=== PATIENT | male | born 1945 | race Caucasian/White ===

== ENCOUNTER 2017-09-15 18:11 | Observation (INO) | payer OTHER ==
[~2017-09-15] VITALS: Ht 175.3 cm; Wt 86.0 kg
[~2017-09-15 18:11] MED LIST: ASPI81TA82 PO; HYDR50TA5 PO; LOVA20TA; SYMB80AE INH; VITA-13 PO; VITA250L PO
[2017-09-15 18:15] VITALS: BP 172/75; PULSE 91; RESP 16; TEMP 97.3; O2SAT 95
[2017-09-15 18:23] VITALS: BP 157/72; PULSE 56; RESP 17; O2SAT 96
[2017-09-15] MEDS ORDERED: SODIUM CHLORIDE 0.9% FLUSH 10 ML FLUSH IVF PRN (19:00)
[2017-09-15] MEDS ORDERED: VITA10002 PO (19:05)
[2017-09-15] MEDS ORDERED: VENTAER INH (19:05)
[2017-09-15] MEDS ORDERED: ASPI81TA16 PO (19:05)
[2017-09-15] MEDS ORDERED: HYDR50TA3 PO (19:05)
[2017-09-15] MEDS ORDERED: SYMB160A INH (19:05)
[2017-09-15] MEDS ORDERED: LOVA20TA PO (19:05)
[2017-09-15] MEDS ORDERED: VITA100018 PO (19:05)
--- NOTE | 2017-09-15 19:08 | PD ---
HPI . Left eye pain Chief Complaint: Eye Problems/Injury Time Seen by Provider: 18:21 Travel History International Travel<30 days: No Contact w/Intl Traveler<30days: No Traveled to known affect area: No History of Present Illness HPI This patient presents with chief complaint of left eye pain. Acute onset was at 2:30 PM. He states that the pain came on very suddenly. It was associated with some hazy visual changes. No diplopia. No nausea or vomiting. He states that he took ibuprofen for it at the onset. His pain continued. He finally decided to come to the hospital a few hours later for evaluation. He states that the instant that he walked into the hospital his pain and visual haziness resolved. He reports no complaints at all right now. He denies any foreign body sensation. There has been no injury to the eye. He has no peripheral neurological complaints. PFSH Past Medical History Heart Rhythm Problems: No Cancer: Yes (lung) Cardiac Catheterization: No Cardiovascular Problems: No High Cholesterol: Yes Congestive Heart Failure: No COPD: Yes Diabetes: No Diminished Hearing: No Endocrine: No Genitourinary: No Hepatitis: No Hiatal Hernia: No Hypertension: Yes Immune Disorder: No Musculoskeletal: No Neurologic: No Psychiatric: No Reproductive: No Respiratory: Yes (copd) Immunizations Current: Yes Radiation Therapy: Yes Thyroid Disease: No Tetanus Vaccination: < 5 Years Past Surgical History Abdominal Surgery: No AICD: No Cardiac Surgery: No Coronary Artery Bypass Graft: No Ear Surgery: No Endocrine Surgery: No Eye Surgery: No Genitourinary Surgery: No Gynecologic Surgery: No Joint Replacement: No Oral Surgery: No Pacemaker: No Thoracic Surgery: No Tonsillectomy: Yes Social History Alcohol Use: Yes (few beers daily ) Tobacco Use: Yes (1ppd) Substance Use: No Allergies-Medications (Allergen,Severity, Reaction): Coded Allergies: No Known Allergies (Unverified Adverse Reaction, Unknown, 09/15/17) Reported Meds & Prescriptions Reported Meds & Active Scripts Active Review of Systems Except as stated in HPI: all other systems reviewed are Neg Eyes: Positive: Blurred Vision, Photophobia, Pain, No: Diploplia, Drainage, Redness, Foreign Body Sensation, Tearing Gastrointestinal: No: Nausea, Vomiting Neurologic: No: Weakness, Focal Abnormalities Physical Exam Narrative GENERAL: Awake and alert and in no acute distress. SKIN: Warm and dry. HEAD: Normocephalic/atraumatic. EYES: There is no conjunctival injection. The cornea are deep and clear. Pupils are equal. Extraocular movements are intact. NECK: Normal range of motion. CARDIOVASCULAR: Regular rate and rhythm. RESPIRATORY: Nonlabored respirations. MUSCULOSKELETAL: Atraumatic. NEUROLOGICAL: A and O 3. Cranial nerves II through XII grossly intact. He has a normal gait. PSYCHIATRIC: Appropriate mood and affect. Data Data Last Documented VS Vital Signs Date Time Temp Pulse Resp B/P (MAP) Pulse Ox O2 Delivery O2 Flow Rate FiO2 09/15/17 18:23 56 17 157/72 (100) 96 09/15/17 18:15 97.3 Orders Orders Electrocardiogram (09/15/17 18:57) Prothrombin Time / Inr (Pt) (09/15/17 18:57) Act Partial Throm Time (Ptt) (09/15/17 18:57) Complete Blood Count With Diff (09/15/17 18:57) Comprehensive Metabolic Panel (09/15/17 18:57) Troponin I (09/15/17 18:57) Ct Brain W/O Iv Contrast(Rout) (09/15/17 18:57) Ecg Monitoring (09/15/17 18:57) Iv Access Insert/Monitor (09/15/17 18:57) Oximetry (09/15/17 18:57) Sodium Chloride 0.9% Flush (Ns Flush) (09/15/17 19:00) MDM Medical Decision Making Medical Screen Exam Complete: Yes Emergency Medical Condition: Yes Differential Diagnosis Differential diagnosis of eye pain includes but is not limited to conjunctivitis , chemical irritation, corneal abrasion, acute angle-closure glaucoma. Narrative Course This patient presents with acute left eye pain. His pain has completely resolved. A TIA workup has been initiated. His care is being turned over to Dr. Ahuja at shift change. Diagnosis Primary Impression: Left eye pain Condition: Stable Lory Granger MD Sep 15, 2017 19:08
--- NOTE | 2017-09-15 19:16 | PD ---
Physical Exam Narrative General: The patient is a well-developed well-nourished male in no acute distress. Head and Neck exam: Head is normocephalic atraumatic. Eyes: EOMI, pupils are equal round and reactive to light. No fogging of the cornea. The patient had anesthetic eyedrops applied to bilateral eyes and the patient had his eye pressure evaluated. The patient has an eye pressure on the right that is 15, left eye pressure is 24. Nose: Midline septum with pink mucous membranes Mouth: Dentition unremarkable. Moist mucus membranes. Posterior oropharynx is not erythematous. No tonsillar hypertrophy. Uvula midline. Airway patent. Neck: No palpable lymphadenopathy. No nuchal rigidity. No thyromegaly. Cardiovascular: Regular rate and rhythm without murmurs, gallops, or rubs. Lungs: Soft expiratory wheezes audible throughout bilateral lung butler. No rhonchi, no crackles. No accessory muscle use noted. No paroxysmal abdominal breathing. No tripoding. Abdomen: Soft, without tenderness to palpation in all 4 quadrants of the abdomen. No guarding, rebound, or rigidity. Normal bowel sounds are audible. No tenderness on palpation of McBurney's point. Negative Vang sign. Extremities: No clubbing, cyanosis, or edema. 2+ pulses in all 4 extremities. No calf tenderness on palpation. Back: No spinous process tenderness to palpation. No costovertebral angle tenderness to palpation. Neurologic Exam: Cranial nerves 2-12 were intact on exam. Strength is 5/5 in all 4 extremities. No sensory deficits noted. Skin Exam: No rash noted. Intact skin that is warm and dry. Data Data Last Documented VS Vital Signs Date Time Temp Pulse Resp B/P (MAP) Pulse Ox O2 Delivery O2 Flow Rate FiO2 09/15/17 19:48 57 18 169/79 (109) 96 Room Air 09/15/17 18:15 97.3 Orders Orders Electrocardiogram (09/15/17 18:57) Prothrombin Time / Inr (Pt) (09/15/17 18:57) Act Partial Throm Time (Ptt) (09/15/17 18:57) Complete Blood Count With Diff (09/15/17 18:57) Comprehensive Metabolic Panel (09/15/17 18:57) Troponin I (09/15/17 18:57) Ct Brain W/O Iv Contrast(Rout) (09/15/17 18:57) Ecg Monitoring (09/15/17 18:57) Iv Access Insert/Monitor (09/15/17 18:57) Oximetry (09/15/17 18:57) Sodium Chloride 0.9% Flush (Ns Flush) (09/15/17 19:00) Sodium Chlor 0.9% 1000 Ml Inj (Ns 1000 M (09/15/17 19:30) Proparacaine 0.5% Opth Soln (Alcaine 0.5 (09/15/17 19:45) Potassium Chloride (Kcl) (09/15/17 20:45) Aspirin (Aspirin) (09/15/17 20:45) Admit Order (Ed Use Only) (09/15/17 21:02) Labs Laboratory Tests Test 09/15/17 19:45 White Blood Count 5.7 TH/MM3 Red Blood Count 4.86 MIL/MM3 Hemoglobin 15.8 GM/DL Hematocrit 45.2 % Mean Corpuscular Volume 93.1 FL Mean Corpuscular Hemoglobin 32.5 PG Mean Corpuscular Hemoglobin Concent 34.9 % Red Cell Distribution Width 13.7 % Platelet Count 233 TH/MM3 Mean Platelet Volume 7.9 FL Neutrophils (%) (Auto) 58.6 % Lymphocytes (%) (Auto) 28.8 % Monocytes (%) (Auto) 7.5 % Eosinophils (%) (Auto) 4.1 % Basophils (%) (Auto) 1.0 % Neutrophils # (Auto) 3.3 TH/MM3 Lymphocytes # (Auto) 1.6 TH/MM3 Monocytes # (Auto) 0.4 TH/MM3 Eosinophils # (Auto) 0.2 TH/MM3 Basophils # (Auto) 0.1 TH/MM3 CBC Comment DIFF FINAL Differential Comment Prothrombin Time 10.2 SEC Prothromb Time International Ratio 1.0 RATIO Activated Partial Thromboplast Time 25.2 SEC Blood Urea Nitrogen 15 MG/DL Creatinine 0.94 MG/DL Random Glucose 122 MG/DL Total Protein 6.9 GM/DL Albumin 3.7 GM/DL Calcium Level 8.8 MG/DL Alkaline Phosphatase 60 U/L Aspartate Amino Transf (AST/SGOT) 21 U/L Alanine Aminotransferase (ALT/SGPT) 22 U/L Total Bilirubin 0.3 MG/DL Sodium Level 140 MEQ/L Potassium Level 3.3 MEQ/L Chloride Level 104 MEQ/L Carbon Dioxide Level 28.9 MEQ/L Anion Gap 7 MEQ/L Estimat Glomerular Filtration Rate 79 ML/MIN Troponin I LESS THAN 0.02 NG/ML [facility] Medical Record Reviewed: Yes Supervised Visit with BILL: No Interpretation(s) Last Impressions Head CT 09/15/17 [id number] Signed Impressions: Service Date/Time: Friday, September 15, 2017 19:27 - CONCLUSION: No acute disease. Rajiv Gaitan MD Narrative Course During the course of the patient's emergency department visit, the patient's history, examination, and differential diagnosis were reviewed with the patient. The patient was placed on a quality assurance monitor chassis with oximetry and frequent blood pressure monitoring. The patient had IV access obtained and blood work sent for analysis. The patient's case was checked out to me by Dr. Granger. Please see her complete history and physical. The patient's case was checked out to me at the conclusion of her shift. The patient had an EKG done that reveals a sinus bradycardia heart rate of 55, QRS duration 108 ms, QTC [address] segment elevation. The patient was initially provided normal saline at 70 mL/h. The patient's laboratory studies were reviewed and remarkable for white count of 5.7, hemoglobin 15.8, platelets 233 with 4.1 eosinophils, CMP is remarkable for a potassium of 3.3 which will be supplemented orally, glucose 122, troponin less than 0.02, PT 10.2, PTT 25.2 Radiology studies were reviewed and remarkable for a CT scan of the brain that shows no acute abnormality. Given the patient's risk factors for TIA including hyperlipidemia, smoking, hypertension, the patient will be admitted to the hospital for observation and evaluation for possible TIA. The patient's results were discussed with the patient, including the plan of care. I explained that further testing and/ or monitoring is indicated based on the patient's history, examination, and/ or laboratory findings. Therefore, I recommended admission for additional evaluation. The patient expressed understanding and was agreeable with this plan. The patient was admitted to the hospital in stable condition and [facility] Physician Communication Physician Communication The patient's case including history, pertinent physical examination findings, and laboratory studies were discussed with Dr. Copeland. It was [facility] Diagnosis Primary Impression: Left eye pain Additional Impressions: Head ache Qualified Codes: R51 - Headache Visual blurriness Admitting Information Admitting Physician Requests: Observation Condition: Stable Shereen Ahuja MD Sep 15, 2017 19:16
[2017-09-15] MEDS ORDERED: PROPARACAINE HCL 0.5% OPHT SOLN 15 ML BTL EACH EYE ONE (19:45)
--- NOTE | 2017-09-15 19:45 | RADRPT ---
EXAM DATE/TIME: 09/15/2017 19:27 [facility] COMPARISON: No previous studies available for comparison. INDICATIONS : Episode of cephalgia today. RADIATION DOSE: 56.35 CTDIvol (mGy) MEDICAL HISTORY : Hypertension. Chronic obstructive pulmonary disease. Carcinoma, lung. SURGICAL HISTORY : Tonsillectomy. ENCOUNTER: Initial ACUITY: 1 day PAIN SCALE: 0/10 LOCATION: Bilateral head TECHNIQUE: Multiple contiguous axial images were obtained of the head. Using automated exposure control and adj ustment of the mA and/or kV according to patient size, radiation dose was kept as low as reasonably a chievable to obtain optimal diagnostic quality images. DICOM format image data is available electro nically for review and comparison. FINDINGS: No signs of acute infarct, hemorrhage, or mass. Scattered foci of low attenuation within the bilatera l subcortical white matter and centrum semiovale having the appearance of remote lacunar infarcts. No fractures. CONCLUSION: No acute disease. Rajiv Gaitan MD on September 15, 2017 at 19:43 Board Certified Radiologist. This report was verified electronically.
[2017-09-15] MEDS: SODIUM CHLOR 0.9% 1000 ML INJ 1,000 ML IV SCH (19:46)
[2017-09-15 19:47] VITALS: RESP 20
[2017-09-15 19:48] VITALS: BP 169/79; PULSE 57; RESP 18; O2SAT 96
[2017-09-15 20:02] LABS: AUTOMATED NEUTROPHIL # 3.3 TH/MM3 (1.8-7.7); BASOPHIL # 0.1 TH/MM3 (0-0.2); EOSINOPHIL # 0.2 TH/MM3 (0-0.4); EOSINOPHIL % 4.1 % (0.0-4.0); HEMATOCRIT 45.2 % (39.0-51.0); HEMOGLOBIN 15.8 GM/DL (13.0-17.0); LYMPH % 28.8 % (9.0-44.0); LYMPHOCYTE # 1.6 TH/MM3 (1.0-4.8); MEAN CELL VOLUME 93.1 FL (80.0-100.0); MEAN CORPUSCULAR HEMOGLOBIN 32.5 PG (27.0-34.0); MEAN CORPUSCULAR HGB CONC 34.9 % (32.0-36.0); MEAN PLATELET VOLUME 7.9 FL (7.0-11.0); MONO % 7.5 % (0.0-8.0); MONOCYTE # 0.4 TH/MM3 (0-0.9); NEUT % 58.6 % (16.0-70.0); PLATELET COUNT 233 TH/MM3 (150-450); RED BLOOD COUNT 4.86 MIL/MM3 (4.50-5.90); RED CELL DISTRIBUTION WIDTH 13.7 % (11.6-17.2); WHITE BLOOD COUNT 5.7 TH/MM3 (4.0-11.0)
[2017-09-15 20:09] LABS: PROTHROMBIN TIME - PATIENT 10.2 SEC (9.8-11.6)
[2017-09-15 20:18] LABS: ALBUMIN 3.7 GM/DL (3.4-5.0); AST (GOT) 21 U/L (15-37); BICARBONATE 28.9 MEQ/L (21.0-32.0); BLOOD UREA NITROGEN 15 MG/DL (7-18); CALCIUM 8.8 MG/DL (8.5-10.1); CHLORIDE 104 MEQ/L (98-107); CREATININE 0.94 MG/DL (0.60-1.30); GLOMERULAR FILTRATION RATE 79 ML/MIN (>89); GLUCOSE,RANDOM 122 MG/DL (74-106); SODIUM (NA) 140 MEQ/L (136-145)
[2017-09-15 20:19] LABS: ALT (GPT) 22 U/L (12-78)
[2017-09-15 20:23] LABS: ALKALINE PHOSPHATASE 60 U/L (45-117); TOTAL BILIRUBIN ADULT 0.3 MG/DL (0.2-1.0); TOTAL PROTEIN 6.9 GM/DL (6.4-8.2); TROPONIN I LESS THAN 0.02 NG/ML (0.02-0.05)
[2017-09-15] MEDS ORDERED: ASPIRIN 325 MG TAB PO ONE (20:45)
[2017-09-15] MEDS ORDERED: POTASSIUM CHLORIDE 10 MEQ CAP PO ONE (20:45)
--- NOTE | 2017-09-15 21:08 | HHI.HP ---
[facility] Erick Baxter MD Admission Diagnosis Headache with vision changes r/o TIA Diagnoses: (1) Transient visual loss of left eye Diagnosis: Principal (2) Headache Diagnosis: Principal (3) Tobacco abuse Diagnosis: Principal Travel History International Travel<30 Days: No Contact w/Intl Traveler <30 Da: No Traveled to Known Affected Are: No History of Present Illness This is a 72-year-old male with a PMH of HTN, Hyperlipidemia, COPD and Tobacco Abuse who presented to the ER w/ complaints of severe left eye pain, transient vision loss and headache. States he noted frontal headache and pain around his eye earlier this afternoon, followed by blurry vision in left eye. States he took 2 Ibuprofen with some relief, however pain persistent. Upon arrival to ER states symptoms completely resolved. No further vision loss or pain. Denies h/ o Glaucoma, but does follow w/ Outboard Motor Mechanic, cannot recall name. On exam in ER, IOP 24 in left eye. BP 172/75, HR 91, O2 sat 95% on RA, Afebrile. CBC unremarkable. Chemistry essentially unremarkable except for K+ 3.3, GFR 79. Troponin negative INR 1.0. CT Head with no acute findings. Review of Systems Except as stated in HPI: all other systems reviewed are Neg ROS: 14 point review of systems otherwise negative. Past Family Social History Past Medical History PMH: HTN, Hyperlipidemia, COPD and Tobacco Abuse Past Surgical History PAST SURGICAL HISTORY: Tonsillectomy Allergies: Coded Allergies: No Known Allergies (Unverified Allergy, Unknown, 09/15/17) Family History PAST FAMILY HISTORY: Reviewed. No h/o DM or CAD Social History PAST SOCIAL HISTORY: Few beers daily. Smokes 1ppd. Negative for drugs. Physical Exam Vital Signs Vital Signs Date Time Temp Pulse Resp B/P (MAP) Pulse Ox O2 Delivery O2 Flow Rate FiO2 09/15/17 19:48 57 18 169/79 (109) 96 Room Air 09/15/17 19:47 20 09/15/17 18:23 56 17 157/72 (100) 96 3/31/18 18:15 97.3 91 16 172/75 (060) 77 Physical Exam PE: GENERAL: Middle-aged white male in no acute distress. HEENT: PERRLA, EOMI. No scleral icterus or conjunctival pallor. No lid lag or facial droop. CARDIOVASCULAR: Regular rate and rhythm. No obvious murmurs to auscultation. No chest tenderness to palpation. RESPIRATORY: No obvious rhonchi or wheezing. Clear to auscultation. Breath sounds equal bilaterally. GASTROINTESTINAL: Abdomen soft, non-tender, nondistended. BS normal. MUSCULOSKELETAL: Extremities without clubbing, cyanosis, or edema. No obvious deformities. RUE amputation. NEUROLOGICAL: Awake, alert and oriented x4. No focal neurologic deficits. Moving both upper and lower extremities spontaneously. Laboratory Laboratory Tests Test 09/15/17 19:45 White Blood Count 5.7 Red Blood Count 4.86 Hemoglobin 15.8 Hematocrit 45.2 Mean Corpuscular Volume 93.1 Mean Corpuscular Hemoglobin 32.5 Mean Corpuscular Hemoglobin Concent 34.9 Red Cell Distribution Width 13.7 Platelet Count 233 Mean Platelet Volume 7.9 Neutrophils (%) (Auto) 58.6 Lymphocytes (%) (Auto) 28.8 Monocytes (%) (Auto) 7.5 Eosinophils (%) (Auto) 4.1 Basophils (%) (Auto) 1.0 Neutrophils # (Auto) 3.3 Lymphocytes # (Auto) 1.6 Monocytes # (Auto) 0.4 Eosinophils # (Auto) 0.2 Basophils # (Auto) 0.1 CBC Comment DIFF FINAL Differential Comment Prothrombin Time 10.2 Prothromb Time International Ratio 1.0 Activated Partial Thromboplast Time 25.2 Blood Urea Nitrogen 15 Creatinine 0.94 Random Glucose 122 Total Protein 6.9 Albumin 3.7 Calcium Level 8.8 Alkaline Phosphatase 60 Aspartate Amino Transf (AST/SGOT) 21 Alanine Aminotransferase (ALT/SGPT) 22 Total Bilirubin 0.3 Sodium Level 140 Potassium Level 3.3 Chloride Level 104 Carbon Dioxide Level 28.9 Anion Gap 7 Estimat Glomerular Filtration Rate 79 Troponin I LESS THAN 0.02 Result Diagram: 09/15/17194409/15/171944 Caprini VTE Risk Assessment Caprini VTE Risk Assessment: No/Low Risk (score <= 1) Caprini Risk Assessment Model Point Value = 1 Point Value = 2 Point Value = 3 Point Value = 5 Age 41-60 Minor surgery BMI > 25 kg/m2 Swollen legs Varicose veins or History of unexplained or recurrent spontaneous Oral contraceptives or hormone replacement Sepsis (< 1 month) Serious lung disease, including pneumonia (< 1 month) Abnormal pulmonary function Acute myocardial infarction Congestive heart failure (< 1 month) History of inflammatory bowel disease Medical patient at bed rest Age 61-74 Arthroscopic surgery Major open surgery (> 45 min) Laparoscopic surgery (> 45 min) Malignancy Confined to bed (> 72 hours) Immobilizing plaster cast Central venous access Age >= 75 History of VTE Family history of VTE Factor V Leiden Prothrombin [id number] Lupus anticoagulant Anticardiolipin antibodies Elevated serum homocysteine Heparin-induced thrombocytopenia Other congenital or acquired thrombophilia Stroke (< 1 month) Elective arthroplasty Hip, pelvis, or leg fracture Acute spinal cord injury (< 1 month) Prophylaxis Regimen Total Risk Factor Score Risk Level Prophylaxis Regimen 0-1 Low Early ambulation 2 Moderate Order ONE of the following: *Sequential Compression Device (SCD) *Heparin 5000 units SQ BID 3-4 Higher Order ONE of the following medications: *Heparin 5000 units SQ TID *Enoxaparin/Lovenox 40 mg SQ daily (WT < 150 kg, CrCl > 30 mL/min) *Enoxaparin/Lovenox 30 mg SQ daily (WT < 150 kg, CrCl > 10-29 mL/min) *Enoxaparin/Lovenox 30 mg SQ BID (WT < 150 kg, CrCl > 30 mL/min) AND/OR *Sequential Compression Device (SCD) 5 or more Highest Order ONE of the following medications: *Heparin 5000 units SQ TID (Preferred with Epidurals) *Enoxaparin/Lovenox 40 mg SQ daily (WT < 150 kg, CrCl > 30 mL/min) *Enoxaparin/Lovenox 30 mg SQ daily (WT < 150 kg, CrCl > 10-29 mL/min) *Enoxaparin/Lovenox 30 mg SQ BID (WT < 150 kg, CrCl > 30 mL/min) AND *Sequential Compression Device (SCD) Assessment and Plan Problem List: (1) Transient visual loss of left eye ICD Code: H53.122 - Transient visual loss, left eye (2) Headache ICD Code: R51 - Headache (3) Tobacco abuse ICD Code: Z72.0 - Tobacco use Assessment and Plan A/P: 1. Vision Loss: Transient. Left Eye. Symptoms now resolved, associated w/ ocular pain and headache, IOP 24 left eye, recommended follow up as outpatient w / his Outboard Motor Mechanic for possible Glaucoma. Concern for TIA, CT Head w/ no acute findings, images reviewed by me. Admit for Observation, check MRI/MRA to eval for stroke. Neuro Checks. ASA, Statin. 2. Headache: s/p Ibuprofen prior to arrival, now improved. CT Head w/ no acute finding, images reviewed by me. Analgesics as needed. 3. Tobacco Abuse: Pt counselled. Ativan prn, no NicoDerm to avoid vasoconstriction. 4. DVT Prophylaxis: SCD/Teds 5. Social work for d/c planning as needed. 6. Case discussed w/ ER physician at length, labs/records/imaging reviewed by me. Ivy Copeland MD Sep 15, 2017 21:08
[2017-09-15 21:12] VITALS: BP 150/74; PULSE 51; RESP 18; O2SAT 96
[2017-09-15] MEDS ORDERED: SENNOSIDES 8.6 MG TAB PO PRN (21:15)
[2017-09-15] MEDS ORDERED: LACTULOSE SYRUP 20 GM/30 ML CUP PO PRN (21:15)
[2017-09-15] MEDS ORDERED: MORPHINE SULFATE 2 MG/ML INJ IV PUSH PRN (21:15)
[2017-09-15] MEDS ORDERED: ONDANSETRON HCL 4 MG/2 ML VIAL IVP PRN (21:15)
[2017-09-15] MEDS ORDERED: ACETAMINOPHEN 325 MG TAB PO PRN (21:15)
[2017-09-15] MEDS ORDERED: ACETAMINOPHEN/HYDROcodone 325 MG/5 MG TAB PO PRN (21:15)
[2017-09-15] MEDS ORDERED: MAGNESIUM HYDROXIDE SUSP 30 ML CUP PO PRN (21:15)
[2017-09-15] MEDS ORDERED: BISACODYL 10 MG SUPP RECTAL PRN (21:15)
[2017-09-15] MEDS ORDERED: SODIUM CHLORIDE 0.9% FLUSH 10 ML FLUSH IV FLUSH PRN (21:15)
[2017-09-15 23:40] VITALS: BP 170/85; PULSE 50; RESP 18; TEMP 98.4; O2SAT 68
[2017-09-16] VITALS: PULSE 58
[2017-09-16 03:26] VITALS: BP 128/60; PULSE 54; RESP 18; TEMP 98.4; O2SAT 96
[2017-09-16 03:52] VITALS: PULSE 55
[2017-09-16] MEDS: SODIUM CHLOR 0.9% 1000 ML INJ 1,000 ML IV SCH (05:43)
--- NOTE | 2017-09-16 08:11 | RADRPT ---
EXAM DATE/TIME: 09/16/2017 07:34 [facility] COMPARISON: CT BRAIN W/O CONTRAST, September 15, 2017, 19:27. INDICATIONS : Left eye pain and visual disturbances. Cephalgia yesterday MEDICAL HISTORY : Hypertension. Hypercholesterolemia. Chronic obstructive pulmonary disease. Lung cancer. SURGICAL HISTORY : Tonsillectomy. ENCOUNTER: Initial ACUITY: 1 day PAIN SCORE: 0/10 LOCATION: cranial TECHNIQUE: Multiplanar, multisequence MRI of the brain was performed without contrast. FINDINGS: CEREBRUM: The ventricles are normal for age. No evidence of midline shift, mass lesion, hemorrhage or acute in farction. No extraaxial fluid collections are seen. The pituitary gland and suprasellar cistern are normal in configuration. WHITE MATTER: On the flair weighted images there are small punctate scattered foci of increased signal in the white matter. POSTERIOR FOSSA: The cerebellum and brainstem are intact. The 4th ventricle is midline. The cerebellopontine angle is unremarkable. The cerebellar tonsils are normal in position. DIFFUSION IMAGING: No focal areas of restricted diffusion are seen. No evidence of acute infarction. EXTRACRANIAL: The visualized portions of the orbits are unremarkable. There are retention cysts in both maxillary s inuses. CONCLUSION: 1. No acute hemorrhage, mass or acute infarction. 2. Mild atrophy and chronic small vessel ischemic change. 3. Retention cysts in both maxillary sinuses. Huseyin Shrestha MD on September 16, 2017 at 8:07 Board Certified Radiologist. This report was verified electronically.
--- NOTE | 2017-09-16 08:13 | RADRPT ---
EXAM DATE/TIME: 09/16/2017 07:34 [facility] COMPARISON: No previous studies available for comparison. INDICATIONS : Left eye pain and visual disturbances. MEDICAL HISTORY : Hypertension. Hypercholesterolemia. Chronic obstructive pulmonary disease. Lung cancer SURGICAL HISTORY : Tonsillectomy. ENCOUNTER: Initial ACUITY: 1 day PAIN SCORE: 0/10 LOCATION: cranial Please note a normal MRA of the brain does not entirely exclude the possibility of a small aneurysm, nor the possibility of distal intracranial vessel disease. TECHNIQUE: 3D time of flight MRA was performed. Source images, multiplanar STS MIP, and 3D volum e MIP reconstructions were reviewed. FINDINGS: There is excellent visualization of the major intracranial arteries out to the second-order branch ve ssels. There is no evidence for aneurysm, vessel truncation or stenosis, and no evidence for vascula r malformation. CONCLUSION: Unremarkable exam. Huseyin Shrestha MD on September 16, 2017 at 8:09 Board Certified Radiologist. This report was verified electronically.
[2017-09-16 08:17] VITALS: PULSE 54
[2017-09-16 08:18] VITALS: BP 177/80; PULSE 70; RESP 20; TEMP 98.2; O2SAT 96
[2017-09-16 08:35] LABS: AUTOMATED NEUTROPHIL # 3.3 TH/MM3 (1.8-7.7); BASOPHIL # 0.1 TH/MM3 (0-0.2); EOSINOPHIL # 0.2 TH/MM3 (0-0.4); EOSINOPHIL % 4.7 % (0.0-4.0); HEMATOCRIT 45.8 % (39.0-51.0); HEMOGLOBIN 15.6 GM/DL (13.0-17.0); LYMPH % 23.6 % (9.0-44.0); LYMPHOCYTE # 1.2 TH/MM3 (1.0-4.8); MEAN CELL VOLUME 92.6 FL (80.0-100.0); MEAN CORPUSCULAR HEMOGLOBIN 31.5 PG (27.0-34.0); MEAN PLATELET VOLUME 8.2 FL (7.0-11.0); MONOCYTE # 0.4 TH/MM3 (0-0.9); NEUT % 62.7 % (16.0-70.0); PLATELET COUNT 256 TH/MM3 (150-450); RED BLOOD COUNT 4.94 MIL/MM3 (4.50-5.90); RED CELL DISTRIBUTION WIDTH 13.6 % (11.6-17.2); WHITE BLOOD COUNT 5.3 TH/MM3 (4.0-11.0)
[2017-09-16 08:46] LABS: ALBUMIN 3.6 GM/DL (3.4-5.0); ALT (GPT) 23 U/L (12-78); AST (GOT) 24 U/L (15-37); BICARBONATE 30.3 MEQ/L (21.0-32.0); BLOOD UREA NITROGEN 12 MG/DL (7-18); CALCIUM 8.3 MG/DL (8.5-10.1); CHLORIDE 107 MEQ/L (98-107); CREATININE 0.79 MG/DL (0.60-1.30); GLOMERULAR FILTRATION RATE 97 ML/MIN (>89); GLUCOSE,RANDOM 82 MG/DL (74-106); SODIUM (NA) 142 MEQ/L (136-145)
[2017-09-16 08:50] LABS: ALKALINE PHOSPHATASE 55 U/L (45-117); TOTAL BILIRUBIN ADULT 0.6 MG/DL (0.2-1.0); TOTAL PROTEIN 6.7 GM/DL (6.4-8.2); TROPONIN I LESS THAN 0.02 NG/ML (0.02-0.05)
[2017-09-16] MEDS ORDERED: PRAVASTATIN SOD 20 MG TAB PO SCH (09:00)
[2017-09-16] MEDS ORDERED: BUDESONIDE-FORMOTEROL 160/4.5 MCG INHALER INH SCH (09:00)
[2017-09-16] MEDS ORDERED: SODIUM CHLORIDE 0.9% FLUSH 10 ML FLUSH IV FLUSH SCH (09:00)
[2017-09-16] MEDS ORDERED: DOCUSATE SODIUM 50 MG/SENNA 8.6 MG TAB PO SCH (09:00)
[2017-09-16] MEDS ORDERED: ASPIRIN EC 81 MG TABEC PO SCH (09:00)
--- NOTE | 2017-09-16 11:48 | HHI.PR ---
Subjective Remarks Patient says he is feeling great. Denies any chest pain or shortness of breath. Denies any focal weakness. He reports that left eye pain and blurry vision occurred yesterday, however resolved upon presentation to the ER. Lasted 3 hours. Headache lasted those 3 hours and went away with improvement in vision. Patient says he feels normal, would like to go home. He says he will follow-up with ophthalmology as outpatient. Objective Vital Signs Date Time Temp Pulse Resp B/P (MAP) Pulse Ox O2 Delivery O2 Flow Rate FiO2 09/16/17 08:18 98.2 70 20 177/80 (112) 96 09/16/17 03:52 55 09/16/17 03:26 98.4 54 18 128/60 (82) 96 09/16/17 00:00 58 09/15/17 23:40 98.4 50 18 170/85 (113) 68 09/15/17 21:12 51 18 150/74 (99) 96 Room Air 09/15/17 19:48 57 18 169/79 (109) 96 Room Air 09/15/17 19:47 20 09/15/17 18:23 56 17 157/72 (100) 96 09/15/17 18:15 97.3 91 16 172/75 (107) 95 I/O 09/15/17 09/15/17 09/15/17 09/16/17 09/16/17 09/16/17 07:00 15:00 23:00 07:00 15:00 23:00 Intake Total 980 ml Output Total 700 ml Balance 280 ml Intake IV Total 980 ml Output Urine Total 700 ml Result Diagram: 09/16/1717 09/16/17716 Objective Remarks GENERAL: patient sitting up on edge of bed. Alert and oriented 4. SKIN: Warm and dry. HEAD: Normocephalic. EYES: No scleral icterus. No injection or drainage. NECK: Supple, trachea midline. No JVD or lymphadenopathy. CARDIOVASCULAR: Regular rate and rhythm without murmurs, Gallops, or rubs. RESPIRATORY: Breath sounds equal bilaterally. No accessory muscle use. GASTROINTESTINAL: Abdomen soft, non-tender, nondistended. MUSCULOSKELETAL: No cyanosis, or edema. BACK: Nontender without obvious deformity. No CVA tenderness. A/P Assessment and Plan //Vision Loss: Transient. Left Eye. Symptoms now resolved, associated w/ ocular pain and headache, IOP 24 left eye, recommended follow up as outpatient w / his Construction Code Administrator for possible Glaucoma. Concern for TIA, CT Head w/ no acute findings, images reviewed by me. Admit for Observation, check MRI/MRA to eval for stroke. Neuro Checks. ASA, Statin. = This is likely open-angle glaucoma. Will refer to ophthalmology as outpatient. Symptoms have resolved. //Headache: s/p Ibuprofen prior to arrival, now improved. CT Head w/ no acute finding, images reviewed by me. Analgesics as needed. // Tobacco Abuse: Pt counselled. Ativan prn, no NicoDerm to avoid vasoconstriction. //DVT Prophylaxis: SCD/Teds Discharge Planning Charge home in good condition. Continue previous diet. Avoid smoking. Activity ad ernie. Please see discharge medication list. Follow-up with ophthalmology tomorrow. Primary care within 1 week. Jose Truong MD Sep 16, 2017 11:48
--- NOTE | 2017-09-16 12:16 | EKG ---
Date Performed: 09/15/2017 Time Performed: 20:19:02 PTAGE: 72 years EKG: SINUS BRADYCARDIA BORDERLINE ECG PREVIOUS TRACING : 04/10/2016 21.27 Since the previous tracing, no significant change noted DOCTOR: Darwin Cage Interpretating Date/Time 09/16/2017 12:14:05
== END 2017-09-16 13:23 | disposition home or self-care (01) ==
LOC: NEPC 18:11 → NEDA 21:04 → NEPFCDU 22:47
PROVIDERS: ADMIT Internal Medicine; ATTEND Internal Medicine
DX: H53.122 Transient visual loss, left eye (principal); R51 Headache; F17.210 Nicotine dependence, cigarettes, uncomplicated; J44.9 Chronic obstructive pulmonary disease, unspecified; I10 Essential (primary) hypertension; E78.5 Hyperlipidemia, unspecified; Z85.118 Personal history of other malignant neoplasm of bronchus and lung; G31.9 Degenerative disease of nervous system, unspecified; R00.1 Bradycardia, unspecified; Z79.899 Other long term (current) drug therapy; Z79.82 Long term (current) use of aspirin
CPT/HCPCS: 70450; 70544; 70551; 80053; 84484; 85025; 85610; 85652; 85730; 93005; 96360; 96361; 99285; G0378; J7030